=== PATIENT | male | born 1970 | race African-American/Black ===

== ENCOUNTER 2022-07-30 23:41 | Emergency (ER) | payer MEDICAID ==
[~2022-07-30] VITALS: Ht 190.5 cm; Wt 105.6 kg
[2022-07-30 23:50] VITALS: BP 172/77
== END 2022-07-31 04:13 | disposition left against medical advice (07) ==
LOC: ER 23:41
DX: Z53.21 Procedure and treatment not carried out due to patient leaving prior to being seen by health care provider (principal)

== ENCOUNTER 2023-05-13 01:16 | Emergency (ER) | payer MEDICAID ==
[~2023-05-13] VITALS: Ht 190.5 cm; Wt 97.5 kg
[2023-05-13 01:53] VITALS: TEMP 98.6; O2SAT 100
[2023-05-13] MEDS ORDERED: IBUPROFEN 600MG TABLET PO ONE (04:45)
[2023-05-13] MEDS ORDERED: IBUP-2029 MT (05:40)
[2023-05-13 05:48] VITALS: BP 138/84; PULSE 70; RESP 16
== END 2023-05-13 05:49 | disposition home or self-care (01) ==
LOC: ER 01:16
DX: S39.013A Strain of muscle, fascia and tendon of pelvis, initial encounter (principal); I10 Essential (primary) hypertension; X58.XXXA Exposure to other specified factors, initial encounter; Y93.89 Activity, other specified; Y92.89 Other specified places as the place of occurrence of the external cause; Y99.8 Other external cause status
CPT/HCPCS: 93970; 99284